=== PATIENT | female | born 1950 | race Caucasian/White ===

== ENCOUNTER 2017-04-19 08:21 | Outpatient (CLI) | payer MEDICARE ==
--- NOTE | 2017-04-19 12:24 | DIAGNOSTIC IMAGING REPORT ---
PROCEDURE: MR LOWER EXT JOINT WO CONT-LT INDICATION: EVAL LT ANKLE POSTERIOR TIBIAL TENDON INJURY/INFLAMMATION TECHNIQUE: Sagittal, axial, coronal, and coronal oblique T1 and STIR sequences obtained through the ankle. COMPARISON: None. FINDINGS: Osseous structures and articular surfaces: Minor subcortical cystic change, spurring, and edema along the lateral aspect of the posterior subtalar joint and at the angle of Giss[place]. Prominent spur formation and cortical irregularity medially and caudally off the medial malleolus. Cortical irregularity lateral and caudal off the tip of the distal fibula. Cartilage surface of the tibia talar joint is mildly thinned anterior but remains largely intact. Mild joint space loss at the talonavicular and calcaneal cuboid articulation. Joint space loss and slight sclerosis at the second and third tarsometatarsal joints. Ligaments: The anterior talofibular ligament appears intact, slightly thickened and surrounded by fluid. The posterior talofibular ligament is intact although has a thickened appearance. Calcaneofibular ligament is not well seen. Medially, the deep deltoid fibers demonstrate intrinsic intermediate signal and loss of definition distally. The superficial deltoid fibers appear redundant. Syndesmotic and tibiofibular ligaments appear grossly intact. The superomedial band of the spring ligament appears heterogeneous but grossly intact. Tendons: There is fluid at the myotendinous junction of the posterior tibialis. There is mild intrinsic signal, mild thickening, and fluid of the proximal tendon proximal to the medial malleolus. Slight thickening, trace intrinsic intermediate signal, slight split fibers (series 3 image 4), and moderate tenosynovitis distal to the genu of the PTT. Moderate irregularity and intrinsic signal at its insertion. Mild surrounding edema in the soft tissues. Flexor digitorum and flexor hallicis longus tendons maintain normal thickness, signal, and course. Intrinsic intermediate signal and slight irregularity of the deep fibers involving the Achilles tendon between 1 to 2 cm from its insertion. There is moderate surrounding edema. The plantaris tendon appears normal. Peroneus longus and brevis tendons, and the anterior tendon group appear normal. Soft tissues, musculature, and fluid: Medial retinacular fibers appear intact. Plantar fascia is normal. There is increased intermediate signal material within the sinus tarsi and the cervical ligament is suboptimally seen on sagittal views. Atrophy of the quadratus plantae and abductor hallicis muscle. IMPRESSION: 1. Tendinopathy and short split tear distally, close to the insertion of the posterior tibial tendon. Tendinopathy and tenosynovitis is seen proximally without stenosis. 2. Partial to full-thickness tears of the deep and superficial portions of the deltoid ligament as well as partial tearing of supromedial spring ligament band. 3. Chronic partial thickness tearing of the anterior and posterior talofibular ligaments with underlying fluid. This may predispose the patient to lateral ankle impingement. 4. Intermediate signal within the sinus tarsi and lack of good visualization of the cervical ligament. Correlate with any instability. Very minimal osseous edema to suggest hindfoot motion. 5. Minor Achilles tendinopathy within 2 cm of its insertion. 6. Atrophy of the quadratus plantae and abductor hallicis muscles. 7. Mild degenerative changes through the ankle and hind foot as described.
--- NOTE | 2017-04-19 13:47 | DIAGNOSTIC IMAGING REPORT ---
PROCEDURE: MR LOWER EXT JOINT WO CONT-RT INDICATION: EVAL HEALING OF RT ANKLE ACHILLES TENDON RUPTURE TECHNIQUE: Sagittal, axial, coronal, and coronal oblique T1 and STIR sequences obtained through the ankle. COMPARISON: 01/20/2017 from [facility] FINDINGS: Abnormal intrinsic fluid signal involving about 50% of central Achilles tendon fibers beginning just below the myotendinous junction and extending for a length of about 4.3 cm. Distal to this, the tendon is abnormally thickened and retracted similar compared to the prior study. The overall length of the abnormal tendon is approximately 9.7 cm. Proximally, for length of about 6.1 cm, the overall AP diameter of the torn tendon has decreased, measuring 7.2 mm in AP diameter, previously 9.4 mm. Distally, the thickened, retracted portion remains fairly stable caliber, about 11 mm in AP diameter. The calcaneal insertion remains normal in appearance. There has been slight increase in paratenon edema. Persistent posterior and medial subcutaneous edema. Moderate muscular edema in the atrophic abductor hallicis muscle and mild atrophy of the quadratus plantae again seen. Marrow signal of the osseous structures is normal. Supporting ligaments of the ankle joint are intact with mild intermediate signal in the deep deltoid fibers. IMPRESSION: 1. Evolution of high-grade partial thickness tearing of the Achilles tendon, mainly with decreased AP diameter in the torn tendon proximally as described. Central intrinsic fluid signal in the proximal portion of this tear is still visible. 2. Otherwise stable findings of the ankle including minor deltoid ligament strain and muscular edema particularly of the abductor hallucis.
== END 2017-04-19 23:00 ==
LOC: MRI SRH 08:21
DX: S86.011A Strain of right Achilles tendon, initial encounter (principal); M76.62 Achilles tendinitis, left leg; M62.572 Muscle wasting and atrophy, not elsewhere classified, left ankle and foot; M19.072 Primary osteoarthritis, left ankle and foot